=== PATIENT | male | born 1995 | race Caucasian/White ===

== ENCOUNTER 2017-05-21 07:08 | Observation (INO) | payer BC ==
--- NOTE | 2017-05-21 07:20 | EDPHY ---
HPI/HX/ROS/PE/MDM Narrative: CHIEF COMPLAINT: Abdominal pain. HPI: The patient is a 21-year-old male who complains of two days of abdominal pain abdominal pain. Patient's pain started in the epigastric region, now localized to right lower quadrant this morning. Patient's pain is severe. He denies changes in food. No recent travel. Patient's last oral intake was at 12am. Patient has associated nausea and lightheadedness, no emesis or diarrhea. No fever. REVIEW OF SYSTEMS: Aside from elements discussed in the HPI, a comprehensive 10-point review of systems was reviewed and is negative. PMH: Denies. SOCIAL HISTORY: [employer] student. Denies drug abuse. PHYSICAL EXAM: General: Patient is alert, in no acute distress. ENT: Eyes are normal to inspection. ENT inspection normal. Neck: Normal inspection. Full range of motion. Respiratory: No respiratory distress. Breath sounds normal bilaterally. Cardiovascular: Regular rate and rhythm. Strong peripheral pulses. Abdomen: Moderate diffuse abdominal tenderness. Severe right lower quadrant tenderness. Back: Normal to inspection. No tenderness to palpation. Skin: Normal color. No rash. Warm and dry. Extremities: Normal appearance. Full range of motion. Neuro: Oriented x3. Normal motor function. Normal sensory function. Portions of this note were transcribed by a biomedical repair technician. I personally performed a history, physical exam, medical decision making, and confirmed accuracy of information the transcribed note. ED Course: Patient presents with severe right lower quadrant tenderness. Plan for CT abdomen/pelvis to look for appendicitis. Lab work ordered. IV was established, patient received IV fluids and Zofran. CT shows probable appendicitis. Patient has an elevated WBC. 0920: I spoke to Dr. Olivas, General surgery, who will assess the patient. 0950: Dr. Olivas will take the patient to the OR. I ordered 1gm Invanz. MDM: This patient presents with signs and symptoms of appendicitis, which is confirmed on CT scan. The patient requires urgent surgical intervention and will be admitted to the care of Dr. Thomas Olivas. - Data Points Imaging Results: Imaging Impressions Abdomen CT 05/21/17 07:57 Impression: Appendicitis with trace free fluid in the low pelvis. No abscess or evidence of perforation. Findings discussed with Emergency Department physician, Keo Tarango M.D. on May 21, 2017 at 8:49 a.m. \ Imaging: Discussed imaging studies w/ mail caller Radiologist, I viewed and interpreted images myself Laboratory Results: Laboratory Results 05/21/17 07:21 05/21/17 07:21 05/21/17 05/21/17 05/21/17 07:34 07:21 07:21 WBC 12.92 10^3/uL H 10^3/uL (3.80-9.50) RBC 5.11 10^6/uL 10^6/uL (4.40-6.38) Hgb 16.7 g/dL g/dL (13.7-17.5) Hct 46.1 % % (40.0-51.0) MCV 90.2 fL fL (81.5-99.8) MCH 32.7 pg pg (27.9-34.1) MCHC 36.2 g/dL g/dL (32.4-36.7) RDW 12.6 % % (11.5-15.2) Plt Count 192 10^3/uL 10^3/uL (150-400) MPV 9.5 fL fL (8.7-11.7) Neut % (Auto) 75.7 % H % (39.3-74.2) Lymph % (Auto) 19.6 % % (15.0-45.0) [place] % (Auto) 3.1 % L % (4.5-13.0) Eos % (Auto) 0.9 % % (0.6-7.6) Baso % (Auto) 0.3 % % (0.3-1.7) Nucleat RBC Rel Count 0.0 % % (0.0-0.2) Absolute Neuts (auto) 9.78 10^3/uL H 10^3/uL (1.70-6.50) Absolute Lymphs (auto) 2.53 10^3/uL 10^3/uL (1.00-3.00) Absolute Monos (auto) 0.40 10^3/uL 10^3/uL (0.30-0.80) Absolute Eos (auto) 0.12 10^3/uL 10^3/uL (0.03-0.40) Absolute Basos (auto) 0.04 10^3/uL 10^3/uL (0.02-0.10) Absolute Nucleated RBC 0.00 10^3/uL 10^3/uL (0-0.01) Immature Gran % 0.4 % % (0.0-1.1) Immature Gran # 0.05 10^3/uL 10^3/uL (0.00-0.10) Sodium 143 mEq/L mEq/L (134-144) Potassium 3.8 mEq/L mEq/L (3.5-5.2) Chloride 106 mEq/L mEq/L (97-110) Carbon Dioxide 26 mEq/l mEq/l (22-31) Anion Gap 11 mEq/L mEq/L (8-16) BUN 18 mg/dL mg/dL (7-23) Creatinine 1.2 mg/dL mg/dL (0.7-1.3) Estimated GFR > 60 Glucose 101 mg/dL H mg/dL (70-100) Calcium 9.7 mg/dL mg/dL (8.5-10.4) Urine Color PALE YELLOW Urine Appearance CLEAR Urine pH 6.0 (5.0-7.5) Ur Specific [place] 1.012 (1.002-1.030) Urine Protein NEGATIVE (NEGATIVE) Urine Ketones NEGATIVE (NEGATIVE) Urine Blood NEGATIVE (NEGATIVE) Urine Nitrate NEGATIVE (NEGATIVE) Urine Bilirubin NEGATIVE (NEGATIVE) Urine Urobilinogen NEGATIVE EU EU (0.2-1.0) Ur Leukocyte Esterase NEGATIVE (NEGATIVE) Urine Glucose NEGATIVE (NEGATIVE) Medications Given: Discontinued Medications Ketorolac Tromethamine (Toradol) 30 mg IVP EDNOW ONE Stop: 05/21/17 07:34 Last Admin: 05/21/17 07:47 Dose: 30 mg Ondansetron HCl (Zofran) 4 mg IVP EDNOW ONE Stop: 05/21/17 07:27 Last Admin: 05/21/17 07:39 Dose: 4 mg General Initial Vital Signs: Initial Vital Signs Temperature (C) 36.5 C 05/21/17 07:10 Heart Rate 73 05/21/17 07:10 Respiratory Rate 16 05/21/17 07:10 Blood Pressure 109/51 L 05/21/17 07:10 O2 Sat (%) 95 05/21/17 07:10 O2 Delivery Mode Room Air Allergies/Adverse Reactions: No Known Allergies Allergy (Verified 05/12/16 23:30) Home Medications: Medication Instructions Recorded NK [No Known Home Meds] 07/22/14 Departure - Departure Disposition: [facility] Inpatient Acute Clinical Impression: Appendicitis Qualifiers: Appendicitis type: acute appendicitis Condition: Good Report Scribed for: Keo Tarango Report Scribed by: Brii Rothman Date of Report: 05/21/17 Time of Report: 07:34
[2017-05-21] MEDS ORDERED: ONDANSETRON 4 MG/2 ML VIAL IVP ONE (07:26)
[2017-05-21 07:33] LABS: % IMMATURE GRANULYOCYTES 0.4 % (0.0-1.1); ABSOLUTE IMMATURE GRANULOCYTES 0.05 10^3/uL (0.00-0.10); ADD DIFF? NO; ADD MORPH? NO; ADD SCAN? NO; ATYPICAL LYMPHOCYTE FLAG 0 (0-99); FRAGMENT RBC FLAG 0 (0-99); HEMATOCRIT 46.1 % (40.0-51.0); HEMOGLOBIN 16.7 g/dL (13.7-17.5); LEFT SHIFT FLG 0 (0-99); LIPEMIA HEMOLYSIS FLAG 90 (0-99); MEAN CELL HEMOGLOBIN 32.7 pg (27.9-34.1); MEAN CELL HEMOGLOBIN CONCENTR. 36.2 g/dL (32.4-36.7); MEAN CELL VOLUME 90.2 fL (81.5-99.8); MEAN PLATELET VOLUME 9.5 fL (8.7-11.7); PLATELET CLUMPS FLAG 0 (0-99); PLATELET COUNT 192 10^3/uL (150-400); RED BLOOD CELL COUNT 5.11 10^6/uL (4.40-6.38); RED CELL DISTRIBUTION WIDTH 12.6 % (11.5-15.2)
[2017-05-21] MEDS ORDERED: KETOROLAC 30 MG/1 ML SDV IVP ONE (07:33)
[2017-05-21 07:43] LABS: COLOR PALE YELLOW; LEUKOCYTE ESTERASE,URINE NEGATIVE (NEGATIVE); NITRITE,URINE NEGATIVE (NEGATIVE)
[2017-05-21 07:46] LABS: ANION GAP 11 mEq/L (8-16); CALCIUM 9.7 mg/dL (8.5-10.4); CARBON DIOXIDE 26 mEq/l (22-31); CHLORIDE 106 mEq/L (97-110); CREATININE 1.2 mg/dL (0.7-1.3); GLOMERULAR FILTRATION RATE > 60; GLUCOSE 101 mg/dL (70-100); POTASSIUM 3.8 mEq/L (3.5-5.2); SODIUM 143 mEq/L (134-144)
[2017-05-21] MEDS ORDERED: IOPAMIDOL (ISOVUE-300) 100 ML BTL ONE (08:26)
[2017-05-21] MEDS ORDERED: ERTAPENEM 1 GM in NS 100 ML IV ONE (09:52)
[2017-05-21] MEDS ORDERED: BUPIVACAINE/EPI 0.5% 30 ML SDV ONE (11:01)
[2017-05-21] MEDS ORDERED: LR 1,000 ML IV ONE (11:46)
[2017-05-21] MEDS ORDERED: MIDAZOLAM 2 MG/2 ML VIAL IVP ONE (12:04)
--- NOTE | 2017-05-21 12:04 | PDANEPAE ---
ANE History of Present Illness appy ANE Past Medical History - Cardiovascular History Hx Hypertension: No Hx Arrhythmias: No Hx Chest Pain: No Hx Coronary Artery / Peripheral Vascular Disease: No Hx CHF / Valvular Disease: No Hx Palpitations: No - Pulmonary History Hx COPD: No Hx Asthma/Reactive Airway Disease: No Hx Recent Upper Respiratory Infection: No Hx Oxygen in Use at Home: No Hx Sleep Apnea: No - Neurologic History Hx Cerebrovascular Accident: No Hx Seizures: No Hx Dementia: No - Endocrine History Hx Diabetes: No - Renal History Hx Renal Disorders: No - Liver History Hx Hepatic Disorders: No ANE Review of Systems - Exercise capacity METS (RN): 4 METS ANE Patient History - Allergies Allergies/Adverse Reactions: No Known Allergies Allergy (Verified 05/12/16 23:30) - Home Medications Home Medications: NK [No Known Home Meds] 07/22/14 [Last Taken Unknown] - NPO status NPO Since - Liquids (Date): 05/21/17 NPO Since - Liquids (Time): 00:30 NPO Since - Solids (Date): 05/21/17 NPO Since - Solids (Time): 00:30 - Anes Hx Anes Hx: no prior problems - Smoking Hx Smoking Status: Never smoked ANE Labs/Vital Signs - Labs Result Diagrams: 05/21/17 07:21 05/21/17 07:21 - Vital Signs Blood Pressure: 124/51 Heart Rate: 57 Respiratory Rate: 18 O2 Sat (%): 97 Height: 177.8 cm Weight: 81.647 kg ANE Physical Exam - Airway Mallampati Score: Class 2 Mouth exam: normal dental/mouth exam - Pulmonary Pulmonary: no respiratory distress - Cardiovascular Cardiovascular: regular rate and rhythym - ASA Status ASA Status: I, E ANE Anesthesia Plan Anesthesia Plan: general endotracheal anesthesia
[2017-05-21] MEDS ORDERED: ROCURONIUM 50 MG/5 ML VIAL ONE (12:15)
[2017-05-21] MEDS ORDERED: ONDANSETRON 4 MG/2 ML VIAL ONE (12:15)
[2017-05-21] MEDS ORDERED: fentaNYL 100 MCG/2 ML INJ ONE ×2 (12:16→14:01)
[2017-05-21] MEDS ORDERED: LIDOCAINE 2% 5 ML SDV ONE (12:16)
[2017-05-21] MEDS ORDERED: PROPOFOL 200 MG/20 ML VIAL ONE (12:16)
[2017-05-21] MEDS ORDERED: DEXAMETHASONE 4 MG/ML VIAL ONE (12:19)
[2017-05-21] MEDS ORDERED: SUGAMMADEX SODIUM 200 MG/2 ML VIAL IVP ONE (12:43)
[2017-05-21] MEDS ORDERED: ONDANSETRON 4 MG/2 ML VIAL IVP PRN (12:45)
[2017-05-21] MEDS ORDERED: MEPERIDINE 25 MG/ML SYR IVP PRN (12:45)
[2017-05-21] MEDS ORDERED: LR 500 ML IV PRN (12:45)
[2017-05-21] MEDS ORDERED: NALOXONE HCL 0.4 MG/ML INJ IVP PRN (12:45)
[2017-05-21] MEDS ORDERED: HYDROmorphONE/DILAUDID 1 MG/ML SYR IVP PRN (12:45)
[2017-05-21] MEDS ORDERED: fentaNYL 100 MCG/2 ML INJ IVP PRN ×2 (12:45)
[2017-05-21] MEDS ORDERED: MIDAZOLAM 2 MG/2 ML VIAL ONE (13:10)
--- NOTE | 2017-05-21 13:15 | POSTOPPROG ---
Post Op Note Date of Operation: 05/21/17 Surgeon: Thomas Olivas Web Developer: coltrain Anesthesia: GET(General Endotracheal) Pre-op Diagnosis: acute appendicitis Post-op Diagnosis: same Indication: same Procedure: laparoscopic appendictomy Findings: acute appy Inf/Abcess present in the surg proc area at time of surgery?: No EBL: Minimal Complications: none
--- NOTE | 2017-05-21 13:21 | POSTANESTH ---
Post Anesthetic Evaluation Cardiovascular Status: Normal, Stable Respiratory Status: Normal, Stable Level of Consciousness/Mental Status: Mildly Sleepy, Arousable Pain Control: Adequate, Prn Tx Ordered Nausea/Vomiting Control: Adequate, Prn Tx Ordered Complications Possibly Related to Anesthesia: None Noted
--- NOTE | 2017-05-21 13:49 | GOP ---
[f rep st] OPERATIVE REPORT DATE OF OPERATION: SURGEON: Thomas Olivas MD CARDIAC EXERCISE PHYSIOLOGIST: Fan Graham, SARAHIA, LSA. PREOPERATIVE DIAGNOSIS: Acute appendicitis. POSTOPERATIVE DIAGNOSIS: Acute appendicitis. PROCEDURE PERFORMED: Laparoscopic appendectomy. FINDINGS: INDICATIONS: 21-year-old male with clinical picture of acute appendicitis. DESCRIPTION OF PROCEDURE: General anesthetic. The abdomen scrubbed with ChloraPrep, draped in usua l sterile fashion. Infraumbilical incision made. Veress needle used to achieve a pneumoperitoneum. A 12 mm port was placed. Two 5 mm ports elsewhere. The viscera were examined. No inguinal herni as were seen. The appendix was thickened and inflamed. There was no free fluid. The mesoappendix was harvested with a Harmonic scalpel. The base of the appendix was amputated flush with the cecum with an Endo- 45 blue cartridge. The appendix was placed in an Endopouch and extracted from the fascial defect at the umbilicus. This defect was closed with 0 Vicryl. Skin was closed with 4-0 Mo nocryl and Dermabond. The patient tolerated the procedure well. /[id number]/MODL
[2017-05-21 14:40] VITALS: RESP 16; TEMP 98.1
[2017-05-21] MEDS ORDERED: HYDROCODONE/APAP 5/325 TAB PO SCH (14:45)
[2017-05-21 15:14] VITALS: BP 107/56; O2SAT 95
[2017-05-21 17:13] VITALS: PULSE 70
== END 2017-05-21 15:22 | disposition home or self-care (01) ==
PROVIDERS: ADMIT Surgery; ATTEND Surgery
PROC: 0DTJ4ZZ Resection of Appendix, Percutaneous Endoscopic Approach (ICD-10-PCS; principal; 2017-05-21 12:30)
DX: K35.80 Unspecified acute appendicitis (principal)
CPT/HCPCS: 96365; J1100; J1335; J1885; J2250; J2405; J2704; J3010; Q9967

== ENCOUNTER 2017-08-29 00:04 | Observation (INO) | payer BC ==
[2017-08-29] MEDS ORDERED: HYDROmorphONE/DILAUDID 1 MG/ML INJ ONE (00:20)
[2017-08-29] MEDS ORDERED: IOPAMIDOL (ISOVUE-300) 100 ML BTL ONE (00:23)
[2017-08-29] MEDS ORDERED: NS 1,000 ML IV ONE (00:25)
[2017-08-29] MEDS ORDERED: HYDROmorphONE/DILAUDID 1 MG/ML INJ IVP ONE (00:25)
[2017-08-29] MEDS ORDERED: CEFAZOLIN 2 GM/DEXTROSE/100 ML BAG IV ONE (00:28)
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
[2017-08-29] MEDS ORDERED: ceFAZolin 2 GM in NS 100 ML IV ONE (00:29)
[2017-08-29] MEDS ORDERED: ONDANSETRON 4 MG/2 ML VIAL IVP PRN ×2 (00:33→01:32)
[2017-08-29 00:36] LABS: % IMMATURE GRANULYOCYTES 0.2 % (0.0-1.1); ABSOLUTE IMMATURE GRANULOCYTES 0.01 10^3/uL (0.00-0.10); ADD DIFF? NO; ADD MORPH? NO; ADD SCAN? NO; ATYPICAL LYMPHOCYTE FLAG 10 (0-99); FRAGMENT RBC FLAG 0 (0-99); HEMATOCRIT 45.4 % (40.0-51.0); LEFT SHIFT FLG 0 (0-99); LIPEMIA HEMOLYSIS FLAG 90 (0-99); MEAN CELL HEMOGLOBIN 33.3 pg (27.9-34.1); MEAN CELL HEMOGLOBIN CONCENTR. 37.4 g/dL (32.4-36.7); PLATELET CLUMPS FLAG 0 (0-99); PLATELET COUNT 216 10^3/uL (150-400); RED CELL DISTRIBUTION WIDTH 12.1 % (11.5-15.2)
[2017-08-29 00:42] LABS: ANION GAP 17 mEq/L (8-16); CALCIUM 9.6 mg/dL (8.5-10.4); CARBON DIOXIDE 22 mEq/l (22-31); CHLORIDE 108 mEq/L (97-110); CREATININE 1.2 mg/dL (0.7-1.3); GLOMERULAR FILTRATION RATE > 60; GLUCOSE 91 mg/dL (70-100); POTASSIUM 3.6 mEq/L (3.5-5.2); SODIUM 147 mEq/L (134-144)
[2017-08-29] MEDS ORDERED: BUPIVACAINE 0.5% 30 ML SDV ONE (00:49)
[2017-08-29] MEDS ORDERED: BACITRACIN 50,000 UNITS/10 ML SYR IRR ONE (00:49)
[2017-08-29 00:57] LABS: ETHANOL SERUM 259 mg/dL (0-10)
[2017-08-29 00:58] LABS: APTT 25.8 SEC (23.0-38.0); INR 0.96 (0.83-1.16); PROTIME(PATIENT) 12.7 SEC (12.0-15.0)
[2017-08-29] MEDS ORDERED: ceFAZolin 2 GM/DEXTROSE 100 ML IV ONE (01:00)
[2017-08-29] MEDS ORDERED: SUCCINYLCHOLINE CHLORIDE*ANESTHESIA ONLY*200 MG/10 ML SYR IVP ONE (01:13)
[2017-08-29] MEDS ORDERED: ROCURONIUM 100 MG/10 ML VIAL ONE (01:13)
[2017-08-29] MEDS ORDERED: fentaNYL 100 MCG/2 ML INJ ONE ×3 (01:13→02:50)
[2017-08-29] MEDS ORDERED: PROPOFOL 200 MG/20 ML VIAL ONE (01:13)
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
[2017-08-29] MEDS ORDERED: fentaNYL 100 MCG/2 ML INJ IVP PRN (01:32)
[2017-08-29] MEDS ORDERED: PROMETHAZINE HCL 25 MG/ML INJ IVP PRN (01:32)
[2017-08-29] MEDS ORDERED: HYDROmorphONE/DILAUDID 1 MG/ML INJ IVP PRN (01:32)
[2017-08-29] MEDS ORDERED: MEPERIDINE 25 MG/ML SYR IVP PRN (01:32)
[2017-08-29] MEDS ORDERED: NALOXONE HCL 0.4 MG/ML INJ IVP PRN (01:32)
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
[2017-08-29] MEDS ORDERED: BACITRACIN ZINC 14.2 GM OINTTUBE TP ONE (02:08)
--- NOTE | 2017-08-29 02:39 | POSTANESTH ---
Post Anesthetic Evaluation Cardiovascular Status: Normal, Stable Respiratory Status: Normal, Stable Level of Consciousness/Mental Status: Can Participate in Eval Pain Control: Adequate, Prn Tx Ordered Nausea/Vomiting Control: Adequate, Prn Tx Ordered Complications Possibly Related to Anesthesia: None Noted
[2017-08-29] MEDS ORDERED: MEPERIDINE 25 MG/ML SYR ONE (02:40)
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
[2017-08-29] MEDS: KETOROLAC 15 MG/1 ML SDV IVP SCH ×3 (03:03→12:49)
[2017-08-29] MEDS: ACETAMINOPHEN 325 MG TAB PO PRN ×3 (03:55→15:05)
[2017-08-29 05:37] LABS: COLOR PALE YELLOW; LEUKOCYTE ESTERASE,URINE NEGATIVE (NEGATIVE); NITRITE,URINE NEGATIVE (NEGATIVE)
[2017-08-29 05:42] LABS: MUCUS TRACE /lpf (NONE-1+)
[2017-08-29 08:24] VITALS: PULSE 87; RESP 18; TEMP 99.3; O2SAT 95
[2017-08-29] MEDS ORDERED: ADDERALL 20 MG TAB PO SCH (09:00)
[2017-08-29] MEDS ORDERED: ENOXAPARIN 40 MG/0.4 ML SYR SC SCH (09:00)
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
[2017-08-29 12:09] VITALS: BP 100/57
--- NOTE | 2017-08-29 17:17 | ASDISCHSUM ---
Discharge Information Plan Status:Home with No Needs Medically Cleared to Leave: Discharge Date:08/29/2017 04:30 PM CM D/C Disposition:Home, Routine, Self-Care ADT D/C Disposition:Home, Routine, Self-Care Projected Discharge Date:08/29/2017 04:30 PM Transportation at D/C:Family Discharge Delay Reason: Follow-Up Date:08/29/2017 04:30 PM Discharge Slot: Final Diagnosis: Placement Information Patient Contact Information Contact Name:TJ Relationship:Mother Address:[address] Work Phone: City:[facility] Phone: [facility]/Zip Code:[place] [address] Email: Financial Information Financial Class:HMO and PPO Plans Primary Plan Desc: OUT OF STATE PPO Primary Plan Number:[id number] Secondary Plan Desc: Secondary Plan Number: Assessment Information Intervention Information
== END 2017-08-29 16:30 | disposition home or self-care (01) ==
LOC: EEVIPCON 00:31 → F3E 03:09
PROVIDERS: ADMIT Surgery; ATTEND Surgery
PROC: 0JQ70ZZ Repair Back Subcutaneous Tissue and Fascia, Open Approach (ICD-10-PCS; principal; 2017-08-29 01:00)
PROC: 0J9700Z Drainage of Back Subcutaneous Tissue and Fascia with Drainage Device, Open Approach (ICD-10-PCS; principal; 2017-08-29 01:00)
PROC: 0JQL0ZZ Repair Right Upper Leg Subcutaneous Tissue and Fascia, Open Approach (ICD-10-PCS; principal; 2017-08-29 01:00)
DX: S31.030A Puncture wound without foreign body of lower back and pelvis without penetration into retroperitoneum, initial encounter (principal); S71.131A Puncture wound without foreign body, right thigh, initial encounter; X99.9XXA Assault by unspecified sharp object, initial encounter; F14.90 Cocaine use, unspecified, uncomplicated; Z72.89 Other problems related to lifestyle; F41.8 Other specified anxiety disorders
CPT/HCPCS: 12001; 13121; 13122; 20102; 71010; 97161; 97165; G0378; 80305; 96374; G0480; J0330; J0690; J1170; J1650; J1885; J2704; J3010; Q9967